=== PATIENT | female | born 1985 | race Hispanic/Latino ===

== ENCOUNTER 2021-11-26 21:44 | Emergency (ER) | payer MEDICAID, OTHER ==
[~2021-11-26] VITALS: Ht 154.9 cm; Wt 105.7 kg
[2021-11-26] MEDS ORDERED: KETOROLAC 30MG VIAL (30MG/ML) ONE (22:00)
[2021-11-26] MEDS ORDERED: CYCLOBENZAPRINE HCL 10 MG TABLET PO ONE (22:30)
[2021-11-26] MEDS ORDERED: NAPR-1180 PO (23:36)
[2021-11-26] MEDS ORDERED: CYCL10TA16 PO (23:36)
[2021-11-27] MEDS ORDERED: NIFEDIPINE 10 MG CAP PO ONE
[2021-11-27 00:20] VITALS: BP 154/85
== END 2021-11-27 00:22 | disposition home or self-care (01) ==
LOC: EDH 21:44
DX: S09.90XA Unspecified injury of head, initial encounter (principal); F07.81 Postconcussional syndrome; E11.9 Type 2 diabetes mellitus without complications; I10 Essential (primary) hypertension; K21.9 Gastro-esophageal reflux disease without esophagitis; Z88.0 Allergy status to penicillin; Z88.1 Allergy status to other antibiotic agents; Z88.2 Allergy status to sulfonamides; Z98.51 Tubal ligation status; E66.01 Morbid (severe) obesity due to excess calories; Z79.1 Long term (current) use of non-steroidal anti-inflammatories (NSAID); Z68.41 Body mass index [BMI] 40.0-44.9, adult; X58.XXXA Exposure to other specified factors, initial encounter; Y93.89 Activity, other specified; Y92.89 Other specified places as the place of occurrence of the external cause; Y99.8 Other external cause status
CPT/HCPCS: 70450; 72125; J1885

== ENCOUNTER 2023-12-02 16:48 | Emergency (ER) | payer BC, OTHER ==
[~2023-12-02] VITALS: Ht 162.6 cm; Wt 104.3 kg
[~2023-12-02 16:48] MED LIST: CYCL10TA16 PO; NAPR-1180 PO
[2023-12-02 17:53] LABS: BASOPHILS # (AUTO) 0.07 K/uL (0.00-0.20); BASOPHILS % (AUTO) 0.4 % (0.0-5.0); EOSINOPHILS # (AUTO) 0.08 K/uL (0.00-0.70); EOSINOPHILS % (AUTO) 0.4 % (0.0-8.0); IMMATURE GRANULOCYTE ABSOLUTE 0.53 K/uL (0-1); LYMPHOCYTES # (AUTO) 1.7 K/uL (1.0-4.8); LYMPHOCYTES % (AUTO) 8.8 % (21.0-51.0); MEAN CORPUSCULAR HGB CONC 33.3 g/dL (32.0-36.0); MEAN CORPUSCULAR VOLUME 89.9 fL (79-99); MONOCYTES # (AUTO) 0.8 K/uL (0.1-1.0); MONOCYTES % (AUTO) 4.2 % (3.0-13.0); NEUTROPHILS # (AUTO) 16.1 K/uL (1.8-7.7); NEUTROPHILS % (AUTO) 83.4 % (40.0-77.0); PLATELET COUNT (AUTO) 324 K/uL (130-400); RED BLOOD CELL COUNT(AUTO) 3.67 MIL/uL (4.00-5.50); RED CELL DISTRIBUTION WIDTH 12.9 % (11.0-15.5); WHITE BLOOD COUNT (AUTO) 19.3 K/uL (4.8-10.8)
[2023-12-02] MEDS: 0.9%NACL 1000ML 1,000 ML IV ONE (18:07)
[2023-12-02] MEDS: KETOROLAC 30MG VIAL (30MG/ML) IVP ONE (18:07)
[2023-12-02 18:19] LABS: CREATININE 0.9 mg/dL (0.5-1.0); MAGNESIUM 1.3 mg/dL (1.80-2.40)
[2023-12-02 18:21] LABS: POTASSIUM 2.9 mmol/L (3.5-5.1)
[2023-12-02 18:48] VITALS: PULSE 95; RESP 20
[2023-12-02] MEDS: ALBUTEROL 0.083% 2.5 MG/3 ML INH IH ONE (18:48)
[2023-12-02] MEDS: POTASSIUM BICARB/CIT AC 25 MEQ TABLET.EFF PO ONE (19:44)
[2023-12-02] MEDS: MAGNESIUM 2GM PREMIX 50ML 50 ML IV SCH (19:44)
[2023-12-02] MEDS: ONDANSETRON 4MG INJ IVP ONE (19:57)
[2023-12-02] MEDS: ACETAMINOPHEN 325 MG TAB PO ONE (19:58)
[2023-12-02 20:49] LABS: APPEARANCE,URINE CLOUDY (CLEAR); BILIRUBIN,URINE NEGATIVE (NEGATIVE); COLOR,URINE YELLOW (YELLOW); GLUCOSE, URINE (UA) NEGATIVE (NEGATIVE); KETONES,URINE NEGATIVE (NEGATIVE); LEUKOCYTE ESTERASE ,URINE 250 Leu/uL (NEGATIVE); NITRATE,URINE 2+ (NEGATIVE); OCCULT BLOOD,URINE SMALL (NEGATIVE); PH,URINE 6.5 (5.0-8.0); PROTEIN,URINE 20 mg/dL (NEGATIVE); UROBILINOGEN,URINE 0.2 mg/dL (0.2-1.0)
[2023-12-02 20:51] LABS: ADD UA MICROSCOPIC YES
[2023-12-02 21:04] LABS: BACTERIA,URINE RARE /HPF (None Seen); MUCUS,URINE FEW LPF (None Seen); SQUAMOUS EPITHELIAL CELL,UR RARE /HPF (0-2)
[2023-12-02 21:25] LABS: RAPID GROUP A STREP negative (NEGATIVE)
[2023-12-02 21:32] VITALS: TEMP 99
[2023-12-02 21:36] LABS: INFLUENZA TYPE A Negative For Type A (NEGATIVE); INFLUENZA TYPE B Negative For Type B (NEGATIVE)
[2023-12-02 23:19] VITALS: O2SAT 96
[2023-12-02] MEDS: POTASSIUM CHLORIDE 20MEQ/100ML 100 ML IV ONE (23:46)
[2023-12-02] MEDS ORDERED: MAGN400T29 PO (23:59)
[2023-12-02] MEDS ORDERED: LEVO750T68 PO (23:59)
[2023-12-02] MEDS ORDERED: POTA-192 PO (23:59)
[2023-12-03] MEDS: LEVOFLOXACIN 750 MG/D5W 150ML BAG IV SCH (00:14)
[2023-12-03 00:31] VITALS: BP 154/62; PULSE 89; RESP 18
== END 2023-12-03 02:45 | disposition home or self-care (01) ==
LOC: EDH 16:48
DX: D64.9 Anemia, unspecified (principal); N39.0 Urinary tract infection, site not specified; E87.6 Hypokalemia; E83.42 Hypomagnesemia; E86.0 Dehydration; D72.829 Elevated white blood cell count, unspecified; E66.01 Morbid (severe) obesity due to excess calories; E11.9 Type 2 diabetes mellitus without complications; I10 Essential (primary) hypertension; F41.9 Anxiety disorder, unspecified; Z20.822 Contact with and (suspected) exposure to COVID-19; Z79.899 Other long term (current) drug therapy; Z88.0 Allergy status to penicillin; Z88.1 Allergy status to other antibiotic agents; Z88.2 Allergy status to sulfonamides; Z88.8 Allergy status to other drugs, medicaments and biological substances; Z98.890 Other specified postprocedural states
CPT/HCPCS: 99291; 96365; 96375 ×2; 96361; 71045; 87426; 83735; 84484; 80048; 85025; 87040; 87086 ×2; 87186; 87880; 87804 ×2; 83605; 81001; 36415; 93005; 94640; J3475; J7030; J2405; J3480; J1885; J1956

== ENCOUNTER 2024-04-03 23:51 | Emergency (ER) | payer BC, MEDICARE ==
[~2024-04-03] VITALS: Ht 154.9 cm; Wt 101.6 kg
[~2024-04-03 23:51] MED LIST changes: +LEVO750T68 PO; +MAGN400T29 PO; +POTA-192 PO
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
--- NOTE | 2024-04-04 01:33 | HMCIMG ---
KNEE 3VWS LT HISTORY: Status post fall COMPARISON: None TECHNIQUE: 3 images of left knee were obtained. FINDINGS: There is no acute displaced fracture or dislocation. IMPRESSION: 1. Findings as described above.
[2024-04-04] MEDS ORDERED: NAPR-1505 PO (01:43)
--- NOTE | 2024-04-04 01:50 | HMCIMG ---
ANKLE COMP 3VWS LT HISTORY: Status post fall COMPARISON: None TECHNIQUE: 3 images of left ankle were obtained. FINDINGS: There is no acute displaced fracture or dislocation. Soft tissue swelling is seen. IMPRESSION: 1. Findings as described above.
[2024-04-04 02:04] VITALS: BP 144/70; PULSE 88; RESP 20; TEMP 98.7; O2SAT 99
== END 2024-04-04 02:35 | disposition home or self-care (01) ==
LOC: EDH 23:51
DX: S86.912A Strain of unspecified muscle(s) and tendon(s) at lower leg level, left leg, initial encounter (principal); E11.9 Type 2 diabetes mellitus without complications; E66.01 Morbid (severe) obesity due to excess calories; I10 Essential (primary) hypertension; Z88.0 Allergy status to penicillin; Z88.1 Allergy status to other antibiotic agents; Z88.2 Allergy status to sulfonamides; W01.10XA Fall on same level from slipping, tripping and stumbling with subsequent striking against unspecified object, initial encounter; Y93.89 Activity, other specified; Y92.89 Other specified places as the place of occurrence of the external cause; Y99.8 Other external cause status
CPT/HCPCS: 29105; 29505; 73562; 73610; 99283